=== PATIENT | female | born 1980 | race American Indian/Alaskan Native ===

== ENCOUNTER 2018-08-17 15:30 | Emergency (ER) | payer MEDICARE ==
[2018-08-17 16:15] VITALS: RESP 20
[2018-08-17] MEDS ORDERED: Sodium Chloride 0.9% 1,000 ML IV ONE (17:27)
[2018-08-17] MEDS ORDERED: Morphine 4 MG/ML VIAL IV STA (17:28)
--- NOTE | 2018-08-17 18:10 | C.PDOC ---
History Of Present Illness 38 y/o female,w/PMhx of sickle cell disease, presents to the ER complaining of generalized joint pain which has been present for the past 3 days. Patient denies having fever,chills, cough, and rash. Time Seen by Provider: 08/17/18 17:08 Chief Complaint (Nursing): Pain, Chronic History Per: Patient History/Exam Limitations: no limitations Onset/Duration Of Symptoms: Days Current Symptoms Are (Timing): Still Present Severity: Moderate Past Medical History Reviewed: Historical Data, Nursing Documentation, Vital Signs Vital Signs: Last Vital Signs Temp 99.7 F H 08/17/18 16:12 Pulse 82 08/17/18 16:12 Resp 20 08/17/18 16:12 BP 109/70 08/17/18 16:12 Pulse Ox 98 08/17/18 16:12 - Medical History PMH: Anemia, Sickle Cell Disease (Anemia) Other Surgeries: Hx of surgeries Family History: States: No Known Family Hx - Social History Hx Alcohol Use: No Hx Substance Use: No Review Of Systems Except As Marked, All Systems Reviewed And Found Negative. Constitutional: Negative for: Fever, Chills Musculoskeletal: Positive for: Other (joint pain) Physical Exam - Physical Exam Appears: Non-toxic, No Acute Distress Skin: Normal Color, Warm, Dry Head: Atraumatic, Normacephalic Eye(s): bilateral: Normal Inspection Nose: Normal Oral Mucosa: Moist Neck: Supple Chest: Symmetrical Cardiovascular: Rhythm Regular Respiratory: Normal Breath Sounds, No Rales, No Rhonchi, No Wheezing Gastrointestinal/Abdominal: Normal Exam, Soft, No Tenderness, No Guarding, No Rebound Neurological/Psych: Oriented x3, Normal Speech ED Course And Treatment O2 Sat by Pulse Oximetry: 98 (RA) Pulse Ox Interpretation: Normal Medical Decision Making Medical Decision Making: Assessment: Sickle Cell Crisis Plan: --Labs --UA --IV Fluids --Morphine IV Updates: Of note, blood was obtained through right arm pulse. Arterial Bloodstick was used. Disposition - Disposition Disposition Time: 19:00 Condition: STABLE Forms: [employer] (Czech) - Clinical Impression Clinical Impression: Sickle cell pain crisis - Scribe Statement The provider has reviewed the documentation as recorded by the Justo Holder Provider Attestation: All medical record entries made by the Scribe were at my direction and personally dictated by me. I have reviewed the chart and agree that the record accurately reflects my personal performance of the history, physical exam, medical decision making, and the department course for this patient. I have also personally directed, reviewed, and agree with the discharge instructions and disposition. Physician Patient Turnover Patient Signed Over To: Princess Saucedo Handoff Comments: labs, reevaluation and disposition
[2018-08-17 18:25] LABS: HCG,QUALITATIVE URINE NEGATIVE (NEGATIVE)
[2018-08-17 18:29] LABS: SQUAMOUS EPITHIAL 1 /hpf (0-5); URINE BACTERIA OCC (<OCC); URINE BILIRUBIN NEGATIVE (NEGATIVE); URINE BLOOD NEGATIVE (NEGATIVE); URINE CLARITY Clear (Clear); URINE COLOR Yellow (YELLOW); URINE GLUCOSE (UA) NORMAL (Normal); URINE LEUKOCYTE ESTERASE NEG Leu/uL (Negative); URINE PROTEIN NEGATIVE (NEGATIVE)
[2018-08-17] MEDS ORDERED: Morphine 4 MG/ML VIAL IM STA (18:41)
[2018-08-17 18:50] LABS: BASO # 0.2 K/uL (0.0-0.2); BASO % 1.5 % (0.0-2.0); EOS # 0.4 K/uL (0.0-0.7); EOS % 3.5 % (0.0-4.0); HEMOGLOBIN 8.4 g/dL (11.0-16.0); LYMPH # 0.8 K/uL (1.0-4.3); LYMPH % 7.9 % (20.0-40.0); MEAN CELL VOLUME 86.8 fL (81.0-99.0); MEAN CORPUSCULAR HEMOGLOBIN 29.6 pg (27.0-31.0); MEAN CORPUSCULAR HGB CONC 34.1 g/dL (33.0-37.0); MEAN PLATELET VOLUME 7.1 fL (7.2-11.7); MONO # 0.9 K/uL (0.0-0.8); MONO % 8.3 % (0.0-10.0); NEUT # 8.5 K/uL (1.8-7.0); NEUT % 78.8 % (50.0-75.0); NRBC % 0.6 % (0.0-2.0); PLATELET COUNT 422 K/uL (130-400); RBC 2.83 Mil/uL (3.80-5.20); RED CELL DISTRIBUTION WIDTH 17.1 % (11.5-14.5); WHITE BLOOD COUNT 10.7 K/uL (4.8-10.8)
[2018-08-17] MEDS ORDERED: Morphine 4 MG/ML VIAL ONE (18:56)
[2018-08-17 19:04] LABS: ALB/GLOB RATIO 1.6 (1.0-2.1); ALBUMIN 5.1 g/dL (3.5-5.0); ALT/SGPT 18 U/L (9-52); AST/SGOT 42 U/L (14-36); BLOOD UREA NITROGEN 8 mg/dL (7-17); CALCIUM 9.1 mg/dl (8.6-10.4); GFR NON-AFRICAN AMERICAN > 60
[2018-08-17 19:15] LABS: ANISOCYTOSIS SLIGHT; BASOPHIL 1 % (0-2); EOSINOPHIL 2 % (0-4); HYPOCHROMIC MODERATE; LYMPHOCYTE 24 % (20-40); MONOCYTE 3 % (0-10); NEUTROPHIL 70 % (50-75); PLATELET ESTIMATE NORMAL (NORMAL); POIKILOCYTOSIS SLIGHT; TARGET CELLS SLIGHT; TOTAL CELLS COUNTED 100
[2018-08-17 19:16] LABS: BURR CELLS SLIGHT; OVALOCYTES SLIGHT; TEARDROP CELLS SLIGHT
[2018-08-17 19:17] LABS: LARGE PLATELETS PRESENT; SICKLE CELLS SLIGHT
[2018-08-17 19:23] LABS: SICKLE CELL SCREEN POSITIVE (NEGATIVE)
[2018-08-17] MEDS ORDERED: Oxycodone/Acetaminophen 5/325 mg Tab PO STA (20:40)
[2018-08-17] MEDS ORDERED: Oxycodone/Acetaminophen 5/325 mg Tab ONE (20:53)
[2018-08-17 20:59] VITALS: BP 111/58; PULSE 67; TEMP 99.4; O2SAT 95
[2018-08-19 02:37] LABS: MCH 28.6 pg (27.0-33.0); MCV 89.1 fL (80.0-100.0)
== END 2018-08-17 20:57 | disposition home or self-care (01) ==
LOC: C.ER 15:30
DX: D57.00 Hb-SS disease with crisis, unspecified (principal)
CPT/HCPCS: 80053; 81001; 83021; 84703; 85014; 85018; 85025; 85041; 85044; 85660; 96372; 99285; J2270